=== PATIENT | male | born 2000 | race Caucasian/White ===

== ENCOUNTER 2024-01-03 18:48 | Emergency (ER) | payer OTHER, SELFPAY ==
[2024-01-03] MEDS ORDERED: Acetaminophen 500 MG TAB ONE (19:54)
== END 2024-01-03 20:45 | disposition home or self-care (01) ==
LOC: CSHERS 18:48
DX: S06.0XAA Concussion with loss of consciousness status unknown, initial encounter (principal); R55 Syncope and collapse; Z55.6 Problems related to health literacy; Y99.0 Civilian activity done for income or pay; X58.XXXA Exposure to other specified factors, initial encounter
CPT/HCPCS: 70450; 72125; 93005